=== PATIENT | male | born 1970 | race Two or more races ===

== ENCOUNTER 2019-11-19 05:19 | Emergency (ER) | payer OTHER ==
[~2019-11-19] VITALS: Ht 180.3 cm; Wt 111.1 kg
[2019-11-19] MEDS ORDERED: METOPROLOL ER-1 EAC1 (05:52)
[2019-11-19] MEDS ORDERED: CLONAZEPAM0.5 MG (05:52)
[2019-11-19] MEDS ORDERED: TESSALON PERLE100 M1 PO (13:46)
[2019-11-19] MEDS ORDERED: MUCINEX DM ER1 EAC1 PO (13:46)
[2019-11-19] MEDS ORDERED: AIRBORNE EFFER1 EACH PO (13:46)
[2019-11-19] MEDS ORDERED: ZITHROMAX500 MG PO (13:46)
== END 2019-11-19 14:17 | disposition home or self-care (01) ==
LOC: ER 05:19
DX: J06.9 Acute upper respiratory infection, unspecified (principal); B96.0 Mycoplasma pneumoniae [M. pneumoniae] as the cause of diseases classified elsewhere